=== PATIENT | male | born 1965 | race Caucasian/White ===

== ENCOUNTER 2018-05-03 12:21 | Emergency (ER) | payer OTHER ==
[2018-05-03] MEDS: IBUPROFEN 600 MG TAB PO (13:24)
[2018-05-03] MEDS: HYDROCODONE/APAP (5/325) TAB PO (13:25)
== END 2018-05-03 14:00 | disposition home or self-care (01) ==
LOC: FTE 12:21
DX: M25.561 Pain in right knee (principal)
CPT/HCPCS: 73562; 99283-25